=== PATIENT | female | born 1945 | race Two or more races ===

== ENCOUNTER 2020-10-26 16:54 | Emergency (ER) | payer MEDICARE ==
[~2020-10-26] VITALS: Ht 160 cm; Wt 71.6 kg
--- NOTE | 2020-10-26 17:43 | NUR ---
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
--- NOTE | 2020-10-26 17:58 | NUR ---
PT AMBULATORY W/ A STEADY GAIT TO BR W/ FAMILY MEMBER FOR ASSISTANCE. URINE CUP PROVIDED.
[2020-10-26] MEDS ORDERED: ONDANSETRON ODT 4 MG PO ONE (18:00)
[2020-10-26] MEDS ORDERED: ONDANSETRON ODT 4 MG ONE (18:18)
[2020-10-26 18:20] LABS: MICROSCOPIC AUTO
[2020-10-26 18:22] LABS: ALBUMIN 3.4 g/dL (3.4-5.0); ANION GAP 5 mmol/L (5-15); CALCIUM 8.4 mg/dL (8.5-10.1); CHLORIDE 99 mmol/L (98-107)
[2020-10-26 18:23] LABS: CREATININE 0.85 mg/dL (0.55-1.02)
[2020-10-26 18:24] LABS: BASOPHILS % (AUTO) 1 % (0-1); EOSINOPHILS % (AUTO) 4 % (1-7); LYMPHOCYTES % (AUTO) 29 % (22-44); MEAN CORPUSCULAR HEMOGLOBIN 28.7 pg (27.0-34.8); MEAN CORPUSCULAR HGB CONC 33.1 g/dL (32.4-35.8); MEAN PLATELET VOLUME 8.7 fL (7.4-10.4); MONOCYTES % (AUTO) 8 % (2-9); NEUTROPHILS % (AUTO) 57 % (42-75); PLATELET COUNT 247 x10^3/uL (130-400); RED BLOOD COUNT 4.48 x10^6/uL (3.82-5.3); RED CELL DISTRIBUTION WIDTH 14.5 % (9.6-15.2)
[2020-10-26] MEDS ORDERED: FOSFOMYCIN 3 GM PACKET PO ONE (18:30)
[2020-10-26] MEDS ORDERED: FOSFOMYCIN 3 GM PACKET ONE (19:08)
--- NOTE | 2020-10-26 19:18 | NUR ---
PATIENT ROAD TESTED, HAD TO HELP PATIENT STEADY HERSELF A COUPLE TIMES DURING WALK. PATIENT REPORTS FEELING DIZZY. ERMD NOTIFIED.
[2020-10-26 19:55] VITALS: BP 130/82
--- NOTE | 2020-10-26 20:14 | NUR ---
Patient's daughter given discharge instructions and they have confirmed that they understand the instructions. Patient wheeled from ED by daughter. NAD, all questions answered appropriately, denies additional needs at this time. No personal belongings left in room after discharge.
== END 2020-10-26 20:15 | disposition home or self-care (01) ==
LOC: ED 20:00
DX: N30.00 Acute cystitis without hematuria (principal); R53.1 Weakness; R42 Dizziness and giddiness; E11.9 Type 2 diabetes mellitus without complications
CPT/HCPCS: 36415; 80048; 81001; 82040; 82962; 83690; 85025; 87086; 93005; 99284; Q0162